=== PATIENT | male | born 1990 | race Two or more races ===

== ENCOUNTER → 2023-10-31 | Outpatient (CLI) | payer MEDICAID, SELFPAY | END | disposition home or self-care (01) | PROVIDERS: PCP Family Medicine; Referring Provider Family Medicine; Visit Provider Student in an Organized Health Care Education/Training Program | DX: S81.801A Unspecified open wound, right lower leg, initial encounter (principal); S81.802A Unspecified open wound, left lower leg, initial encounter; W17.89XA Other fall from one level to another, initial encounter; R60.0 Localized edema; E66.9 Obesity, unspecified | CPT/HCPCS: 99213; A9270; G0463 ==

== ENCOUNTER → 2024-01-21 | Outpatient (CLI) | payer MEDICAID, SELFPAY | END | disposition home or self-care (01) | PROVIDERS: PCP Family Medicine; Referring Provider Family Medicine; Visit Provider Student in an Organized Health Care Education/Training Program | DX: S81.801A Unspecified open wound, right lower leg, initial encounter (principal); W17.89XA Other fall from one level to another, initial encounter; L97.312 Non-pressure chronic ulcer of right ankle with fat layer exposed; R60.0 Localized edema; E66.9 Obesity, unspecified | CPT/HCPCS: 11042; 99213; A9270; G0463 ==

== ENCOUNTER → 2024-01-28 | Outpatient (CLI) | payer MEDICAID, SELFPAY | END | disposition home or self-care (01) | LOC: SWHD 10:46 | PROVIDERS: PCP Family Medicine; Referring Provider Family Medicine; Visit Provider Surgery | DX: S81.801A Unspecified open wound, right lower leg, initial encounter (principal); W17.89XA Other fall from one level to another, initial encounter; L97.312 Non-pressure chronic ulcer of right ankle with fat layer exposed; R60.0 Localized edema; E66.9 Obesity, unspecified | CPT/HCPCS: 99213; A9270; G0463 ==

== ENCOUNTER → 2024-02-04 | Outpatient (CLI) | payer MEDICAID, SELFPAY | END | disposition home or self-care (01) | LOC: SWHD 10:15 | PROVIDERS: PCP Family Medicine; Referring Provider Family Medicine; Visit Provider Student in an Organized Health Care Education/Training Program | DX: I96 Gangrene, not elsewhere classified (principal); S81.801A Unspecified open wound, right lower leg, initial encounter; W17.89XA Other fall from one level to another, initial encounter; L97.312 Non-pressure chronic ulcer of right ankle with fat layer exposed; R60.0 Localized edema; E66.9 Obesity, unspecified | CPT/HCPCS: 99213; A9270; G0463 ==

== ENCOUNTER → 2024-02-11 | Outpatient (CLI) | payer MEDICAID, SELFPAY | END | disposition home or self-care (01) | LOC: SWHD 09:54 | PROVIDERS: PCP Family Medicine; Referring Provider Family Medicine; Visit Provider Student in an Organized Health Care Education/Training Program | DX: S81.801A Unspecified open wound, right lower leg, initial encounter (principal); W17.89XA Other fall from one level to another, initial encounter; L97.312 Non-pressure chronic ulcer of right ankle with fat layer exposed; R60.0 Localized edema; E66.9 Obesity, unspecified | CPT/HCPCS: 99213; A9270; G0463 ==

== ENCOUNTER 2024-02-17 13:30 | Outpatient (RCR) | payer MEDICAID, SELFPAY ==
--- NOTE | 2024-02-04 15:44 | PTNOTE_ITS ---
PT OP Initial Eval Patient Information Outpatient Physical Therapy Treatment Date: 02/04/24 Visit Reasons: Fracture of right tibia Medical Diagnosis: Right Pilon Fracture; s82.871d Treatment Dx #1: Right Ankle Mobility Deficits Treatment Dx #2: Abnormal Gait Start of Care: 02/04/24 Date of Onset: 08/13/23 Smoking Status Smoking Status: Never smoker Initial Assessment Subjective: Pt is a 33 y/o male s/p right ankle pilon fracture external fixator after falling from attic 08/13/23. Pt's external fixator removed in Oct 2023. Pt still has limitation with standing, chores, self care, balance, walking, and performing recreational activities. Objective: Right Ankle AROM DF: neutral PF: 10 deg Inversion: 2 deg Eversion: 5 deg Right Ankle MMTs: grossly 2-/5 Right Knee AROM: all motions are WNL Right Knee MMTs: grossly 3+/5 Right Hip AROM: all motions are WNL Right Hip MMTs: grossly 3+/5 Gait Observation: step to with FWW Assessment: Pt demonstrate right ankle mobility deficits s/p surgery leading to difficulty with ADLs. Pt will benefit from physical therapy to increase ROM, strength, and work on ambulation Short Term and Net Developer With [employer] Goals 1) Increase right ankle AROM WFL in 12 wks to be able to walk 2) Increase right ankle MMTs grossly to 4-/5 in 12 wks to be able to perform chores 3) Decrease ankle pain to 2/10 in 12 wks to be able to stand more than 30 mins 4) Increase right hip MMTs grossly to 4-/5 in 12 wks to be able to perform recreational activities 5) Indep with HEP Treatment Plan 1) Manual Therapy 2) Therapeutic Activities 3) Therapeutic Exercises 4) Modalities (ice, heat) 5) Balance Training 6) Gait Training Frequency and Duration: 2 x wk for 12 wks Certification Dates: 02/04/24 to 05/04/24 Procedure Charges OP PT Eval Mod Complex 30 minutes: Yes
--- NOTE | 2024-02-17 13:35 | PT.ODAYNRPT ---
PT Outpatient Daily Note OP Daily Note Outpatient Physical Therapy Treatment Date: 02/17/24 Visit Reasons: Fracture of right tibia Subjective: Pt reports he continues to use CAM boot and FWW. Pt shared when he is out of boot at home with walks with FWW but NWB on R foot. Objective: Please see flow sheet for ther ex lsit Assessment: Pt instructed and educated on PWB status and encouraged to attempt in clinic but pt hesitant. Pt instructed on forward lunge exercise on step, pt tolerated well. Plan: Continue with POC. Length of Time (minutes) of Treatment: 30 Minutes Procedure Charges Therapeutic Exercise 30 minutes: Yes
== END 2024-02-18 23:59 | disposition home or self-care (01) ==
LOC: CPTX 13:30
PROVIDERS: PCP Family Medicine; Referring Provider Family Medicine; Visit Provider Family Medicine
DX: R26.2 Difficulty in walking, not elsewhere classified (principal); R26.89 Other abnormalities of gait and mobility; S82.871D Displaced pilon fracture of right tibia, subsequent encounter for closed fracture with routine healing; W17.89XD Other fall from one level to another, subsequent encounter
CPT/HCPCS: 97110; 97162

== ENCOUNTER → 2024-02-18 | Outpatient (CLI) | payer MEDICAID, SELFPAY | END | disposition home or self-care (01) | LOC: SWHD 11:05 | PROVIDERS: PCP Family Medicine; Referring Provider Family Medicine; Visit Provider Student in an Organized Health Care Education/Training Program | DX: I96 Gangrene, not elsewhere classified (principal); S81.801A Unspecified open wound, right lower leg, initial encounter; W17.89XA Other fall from one level to another, initial encounter; L97.312 Non-pressure chronic ulcer of right ankle with fat layer exposed; R60.0 Localized edema; E66.9 Obesity, unspecified | CPT/HCPCS: 99213; A9270; G0463 ==

== ENCOUNTER → 2024-02-26 | Outpatient (CLI) | payer MEDICAID, SELFPAY | END | disposition home or self-care (01) | LOC: SWHD 13:48 | PROVIDERS: PCP Family Medicine; Referring Provider Family Medicine; Visit Provider Surgery | DX: I96 Gangrene, not elsewhere classified (principal); S81.801A Unspecified open wound, right lower leg, initial encounter; W17.89XA Other fall from one level to another, initial encounter; L97.312 Non-pressure chronic ulcer of right ankle with fat layer exposed; R60.0 Localized edema; E66.9 Obesity, unspecified | CPT/HCPCS: 99213; A9270; G0463 ==

== ENCOUNTER → 2024-03-05 | Outpatient (CLI) | payer MEDICAID, SELFPAY | END | disposition home or self-care (01) | LOC: SWHD 13:39 | PROVIDERS: PCP Family Medicine; Referring Provider Family Medicine; Visit Provider Student in an Organized Health Care Education/Training Program | DX: I96 Gangrene, not elsewhere classified (principal); S81.801A Unspecified open wound, right lower leg, initial encounter; W17.89XA Other fall from one level to another, initial encounter; L97.312 Non-pressure chronic ulcer of right ankle with fat layer exposed; R60.0 Localized edema; E66.9 Obesity, unspecified | CPT/HCPCS: 99213; A9270; G0463 ==

== ENCOUNTER → 2024-03-06 | Outpatient (CLI) | payer MEDICAID, SELFPAY | END | disposition home or self-care (01) | LOC: SLDO 15:22 | PROVIDERS: PCP Student in an Organized Health Care Education/Training Program; Referring Provider Student in an Organized Health Care Education/Training Program; Visit Provider Student in an Organized Health Care Education/Training Program | DX: L97.312 Non-pressure chronic ulcer of right ankle with fat layer exposed (principal) | CPT/HCPCS: 87070; 87075; 87077; 87186; 87205 ==

== ENCOUNTER → 2024-03-12 | Outpatient (CLI) | payer MEDICAID, SELFPAY | END | disposition home or self-care (01) | LOC: SWHD 13:40 | PROVIDERS: PCP Family Medicine; Referring Provider Family Medicine; Visit Provider Student in an Organized Health Care Education/Training Program | DX: I96 Gangrene, not elsewhere classified (principal); S81.801A Unspecified open wound, right lower leg, initial encounter; W17.89XA Other fall from one level to another, initial encounter; L97.312 Non-pressure chronic ulcer of right ankle with fat layer exposed; R60.0 Localized edema; E66.9 Obesity, unspecified | CPT/HCPCS: 99213; A9270; G0463 ==

== ENCOUNTER 2024-03-18 13:00 | Outpatient (RCR) | payer MEDICAID, SELFPAY ==
--- NOTE | 2024-02-20 13:38 | PT.ODAYNRPT ---
PT Outpatient Daily Note OP Daily Note Outpatient Physical Therapy Treatment Date: 02/20/24 Visit Reasons: Fracture of RT tibia Subjective: Pt's foot feeling okay. Pt mention his wound continues to heal. Pt has not attempted walking on the right ankle yet. Objective: Please see flow chart for list of ther ex performed Assessment: progressing with exercises and started more WB exercises with good tolerance. Pt encouraged to start WB more at home to be able to transition to a better gait pattern. Plan: Continue with PT Length of Time (minutes) of Treatment: 30 Minutes Procedure Charges Therapeutic Exercise 30 minutes: Yes
--- NOTE | 2024-02-25 13:52 | PT.ODAYNRPT ---
PT Outpatient Daily Note OP Daily Note Outpatient Physical Therapy Treatment Date: 02/25/24 Visit Reasons: Fracture of RT tibia Subjective: Pt reports foot is doing better, is not using CAM boot today and ambulating with FWW NWB on R LE. Objective: Please see flow sheet for ther ex list. Assessment: Worked on GT with FWW with WBAT on R foot, pt able to complete 3 laps in parallel bars. Pt replicated gait ambulating in clinic with FWW, pt WBAT during GT. Plan: Continue with pOC. Length of Time (minutes) of Treatment: 30 Minutes Procedure Charges Therapeutic Exercise 30 minutes: Yes
--- NOTE | 2024-02-27 13:06 | PT.ODAYNRPT ---
PT Outpatient Daily Note OP Daily Note Outpatient Physical Therapy Treatment Date: 02/27/24 Visit Reasons: Fracture of RT tibia Subjective: Pt reports foot is doing ok, pt ambulating NWB on R LE with FWW. Objective: Please see flow sheet for ther ex list. Assessment: Pt instructed on GT with B UE in parallel bars, pt ambulated WBAT wtih no pain. Pt encouraged to WBAT to maximize rehab potential since pt can ambulate pain free, pt agreed. Plan: Continue with POC. Assess response to WBAT instructions. Length of Time (minutes) of Treatment: 30 Minutes Procedure Charges Therapeutic Exercise 30 minutes: Yes
--- NOTE | 2024-03-03 14:27 | PT.ODAYNRPT ---
PT Outpatient Daily Note OP Daily Note Outpatient Physical Therapy Treatment Date: 03/03/24 Visit Reasons: Fracture of RT tibia Subjective: Pt's been able to walk and start putting weight on his toes with less pressure. Objective: Please see flow chart for list of ther ex performed Assessment: worked on step to pattern in PB. frequent cues to heel toe vs toe to heel. Pt is progressing with gait and able to put more weight through right LE in stance Plan: Continue with PT Length of Time (minutes) of Treatment: 30 Minutes Procedure Charges Therapeutic Exercise 30 minutes: Yes
--- NOTE | 2024-03-06 14:24 | PT.ODAYNRPT ---
PT Outpatient Daily Note OP Daily Note Outpatient Physical Therapy Treatment Date: 03/06/24 Visit Reasons: Fracture of RT tibia Subjective: Pt's ankle is getting better. Pt is walking more with confidence at home. Objective: Please see flow chart for list of ther ex perfomed Assessment: improving with ankle mobility and able to continue to increase WB with step to gait. Plan: Continue with PT Length of Time (minutes) of Treatment: 30 Minutes Procedure Charges Therapeutic Exercise 30 minutes: Yes
--- NOTE | 2024-03-10 12:00 | PT.ODAYNRPT ---
PT Outpatient Daily Note OP Daily Note Outpatient Physical Therapy Treatment Date: 03/10/24 Visit Reasons: Fracture of RT tibia Subjective: No new complaints. Pt WBAT using FWW. Objective: Please see flow sheet for ther ex list. Assessment: Pt encouraged to WB on R LE, pt ambulating with TTWb or NWB when ambulating. Pt heavy use of hands during gait training and exercises in parallel bars. Plan: Continue with POC. Length of Time (minutes) of Treatment: 30 Minutes Procedure Charges Therapeutic Exercise 30 minutes: Yes
--- NOTE | 2024-03-12 12:53 | PT.ODAYNRPT ---
PT Outpatient Daily Note OP Daily Note Outpatient Physical Therapy Treatment Date: 03/12/24 Visit Reasons: Fracture of RT tibia Subjective: Pt feels more confidence with walking. Objective: Please see flow chart for list of ther ex performed Assessment: able to stand today without assist. Pt was unable to attempt going up or down steps today due to fear and inability to maintain SLS when advancing left LE Plan: Continue with PT Length of Time (minutes) of Treatment: 30 Minutes Procedure Charges Therapeutic Exercise 30 minutes: Yes
--- NOTE | 2024-03-16 13:34 | PT.ODAYNRPT ---
PT Outpatient Daily Note OP Daily Note Outpatient Physical Therapy Treatment Date: 03/16/24 Visit Reasons: Fracture of RT tibia Subjective: Pt reports progress with R LE. Objective: Please see flow sheet for ther ex list. Assessment: Pt ambulating with FWW, heavy use of hand and WBAT on R LE. Pt encouraged to attempt to increase WB on R LE, instructed static standing with no FEDERAL JAVA DEVELOPER pt guarded and hesitant continues to favor L side. Plan: Continue with POC. Length of Time (minutes) of Treatment: 30 Minutes Procedure Charges Therapeutic Exercise 30 minutes: Yes
--- NOTE | 2024-03-18 16:20 | PT.ODAYNRPT ---
PT Outpatient Daily Note OP Daily Note Outpatient Physical Therapy Treatment Date: 03/18/24 Visit Reasons: Fracture of RT tibia Subjective: Pt's foot is okay. Pt notice some soreness after last session Objective: Please see flow chart for list of ther ex performed Assessment: cue to correct gait to heel toe vs toe to heel. Able to correct gait with decrease stride length. Pt continues to exhibit increase WB on the right ankle with all exercises in therapy Plan: Continue with PT Length of Time (minutes) of Treatment: 30 Minutes Procedure Charges Therapeutic Exercise 30 minutes: Yes
== END 2024-03-20 23:59 | disposition home or self-care (01) ==
LOC: CPTX 13:00
PROVIDERS: PCP Family Medicine; Referring Provider Family Medicine; Visit Provider Family Medicine
DX: R26.2 Difficulty in walking, not elsewhere classified (principal); R26.89 Other abnormalities of gait and mobility; S82.871D Displaced pilon fracture of right tibia, subsequent encounter for closed fracture with routine healing; W17.89XD Other fall from one level to another, subsequent encounter
CPT/HCPCS: 97110

== ENCOUNTER → 2024-03-19 | Outpatient (CLI) | payer MEDICAID, SELFPAY | END | disposition home or self-care (01) | LOC: SWHD 13:42 | PROVIDERS: PCP Family Medicine; Referring Provider Family Medicine; Visit Provider Student in an Organized Health Care Education/Training Program | DX: S81.801A Unspecified open wound, right lower leg, initial encounter (principal); W17.89XA Other fall from one level to another, initial encounter; L97.312 Non-pressure chronic ulcer of right ankle with fat layer exposed; R60.0 Localized edema; E66.9 Obesity, unspecified | CPT/HCPCS: 99213; A9270; G0463 ==

== ENCOUNTER → 2024-03-25 | Outpatient (CLI) | payer MEDICAID, SELFPAY | END | disposition home or self-care (01) | LOC: SWHD 14:23 | PROVIDERS: PCP Family Medicine; Referring Provider Family Medicine; Visit Provider Surgery | DX: S81.801A Unspecified open wound, right lower leg, initial encounter (principal); W17.89XA Other fall from one level to another, initial encounter; L97.312 Non-pressure chronic ulcer of right ankle with fat layer exposed; R60.0 Localized edema; E66.9 Obesity, unspecified | CPT/HCPCS: 99213; A9270; G0463 ==

== ENCOUNTER → 2024-04-01 | Outpatient (CLI) | payer MEDICAID, SELFPAY | END | disposition home or self-care (01) | LOC: SWHD 14:38 | PROVIDERS: PCP Family Medicine; Referring Provider Family Medicine; Visit Provider Student in an Organized Health Care Education/Training Program | DX: T81.89XA Other complications of procedures, not elsewhere classified, initial encounter (principal); L97.312 Non-pressure chronic ulcer of right ankle with fat layer exposed; R60.0 Localized edema; E66.9 Obesity, unspecified | CPT/HCPCS: 99213; A9270; G0463 ==

== ENCOUNTER 2024-04-16 13:00 | Outpatient (RCR) | payer MEDICAID, SELFPAY ==
--- NOTE | 2024-03-24 15:07 | PT.ODAYNRPT ---
PT Outpatient Daily Note OP Daily Note Outpatient Physical Therapy Treatment Date: 03/24/24 Visit Reasons: FRACTURE RIGHT TIBIA Subjective: Pt's ankle feels okay. Pt mentioned he still has fear with walking without his walker Objective: Please see flow chart for list of ther ex performed Assessment: attempted to transition patient to [place] with left hand in PB but unable to due inability to WB on the right ankle while advancing the left LE. Pt modified back to placing bilateral palm while gait training in parallel bar to put more weight on the right ankle in stance Plan: Continue with PT Length of Time (minutes) of Treatment: 30 Minutes Procedure Charges Therapeutic Exercise 30 minutes: Yes
--- NOTE | 2024-03-26 13:34 | PT.ODAYNRPT ---
PT Outpatient Daily Note OP Daily Note Outpatient Physical Therapy Treatment Date: 03/26/24 Visit Reasons: FRACTURE RIGHT TIBIA Subjective: Pt decided to wear shoe today due to the rain and notice he feels more balance while walking. Objective: Please see flow chart for list of ther ex performed Assessment: able to transition to one hand on the PB with gait. Pt demonstrate confidence with WB and gait today Plan: Continue with PT Length of Time (minutes) of Treatment: 30 Minutes Procedure Charges Therapeutic Exercise 30 minutes: Yes
--- NOTE | 2024-03-30 14:35 | PTNOTE_ITS ---
PT Outpatient Daily Note OP Daily Note Outpatient Physical Therapy Treatment Date: 03/30/24 Visit Reasons: FRACTURE RIGHT TIBIA Subjective: Pt came in wearing tennis shoes on R foot, continues to use FWW. Objective: Please see flow sheet for ther ex list. Assessment: Pt continues with heavy use of hands during GT, decrease stance phase on R LE and poor heel strike. Pt can replicate heel toe gait in parallel bars during GT but relies heavy on HOSPITAL CHIEF FINANCIAL OFFICER. Pt denies pain with WB, once pt uses FWW pt reverts to favoring L LE and heavy use of hands. Plan: Continue working on gait. Length of Time (minutes) of Treatment: 30 Minutes Procedure Charges Therapeutic Exercise 30 minutes: Yes
--- NOTE | 2024-04-03 14:09 | PT.ODAYNRPT ---
PT Outpatient Daily Note OP Daily Note Outpatient Physical Therapy Treatment Date: 04/03/24 Visit Reasons: FRACTURE RIGHT TIBIA Subjective: Pt's doing fine no new concerns. Objective: Please see flow chart for list of ther ex performed Assessment: demonstrate regression with gait today. Pt resort to long stride with right LE leading to decrease WB in stance leading to a hopping gait with use of one UE in PB. Pt require frequent cues to take small step to improve gait ase master mechanic. Plan: Continue with PT Length of Time (minutes) of Treatment: 30 Minutes Procedure Charges Therapeutic Exercise 30 minutes: Yes
--- NOTE | 2024-04-08 12:46 | PTNOTE_ITS ---
PT Outpatient Daily Note OP Daily Note Outpatient Physical Therapy Treatment Date: 04/08/24 Visit Reasons: FRACTURE RIGHT TIBIA Subjective: Pt mentioned ankled feels stiff. Pt has been practicing walking at home. Objective: palpation: hypomobile talocrural joint. Assessment: improved ankle DF AROM post joint mob and calf stretching leading to better gait powerhouse mechanic helper in stance Plan: Continue with PT Length of Time (minutes) of Treatment: 30 Minutes Procedure Charges Therapeutic Exercise 30 minutes: Yes Manual Chief Transfer And Pumphouse Operator 15 minutes: Yes
--- NOTE | 2024-04-10 14:41 | PT.ODAYNRPT ---
PT Outpatient Daily Note OP Daily Note Outpatient Physical Therapy Treatment Date: 04/10/24 Visit Reasons: FRACTURE RIGHT TIBIA Subjective: No complaints, pt denies pain with WB on R LE. Objective: Please see flow sheet for ther ex list. Assessment: Pt continues to ambulate with poor heel strike, continues to use FWW with tip toe WB on R LE. Pt educated on foot flar during L foot swing, was able to replicate in parallel bars during GT but once pt uses FWW reverts to poor heel strike. Plan: Continue with pOC, work on normalizing gait and improving ankle mobility. Length of Time (minutes) of Treatment: 30 Minutes Procedure Charges Therapeutic Exercise 30 minutes: Yes
--- NOTE | 2024-04-14 13:23 | PT.ODAYNRPT ---
PT Outpatient Daily Note OP Daily Note Outpatient Physical Therapy Treatment Date: 04/14/24 Visit Reasons: FRACTURE RIGHT TIBIA Subjective: No new complaints. Objective: Please see flow sheet for ther ex list. Assessment: Pt continues to ambulate with FWW and tip toe gait on R foot. Pt able to perform improved heel strike on R foot and R foot flat during L LE swing phase while GT in parallel bars. Pt continues to be educated on goals and expectations on foot position during ambulation to work toward normailizing gait, pt can replicate when ambulating in parallel bars but then reverts to poor gait pattern when using FWW. Plan: Continue wtih POC. Length of Time (minutes) of Treatment: 30 Minutes Procedure Charges Therapeutic Exercise 30 minutes: Yes
--- NOTE | 2024-04-16 13:58 | PT.ODAYNRPT ---
PT Outpatient Daily Note OP Daily Note Outpatient Physical Therapy Treatment Date: 04/16/24 Visit Reasons: FRACTURE RIGHT TIBIA Subjective: Pt recently seen a bullet slugs inspector. According to bullet slugs inspector patient can start using a cane as able. Objective: Please see flow chart for list of ther ex performed Assessment: improved ankle DF AROM post PT session. Decrease ankle DF in stance is what's preventing patient from improving gait treatment plant mechanic. Pt instructed to performed ankle stretches and ROM as HEP at home. Plan: Continue with PT Length of Time (minutes) of Treatment: 30 Minutes Procedure Charges Therapeutic Exercise 30 minutes: Yes
== END 2024-04-17 23:59 | disposition home or self-care (01) ==
LOC: CPTX 13:00
PROVIDERS: PCP Family Medicine; Referring Provider Family Medicine; Visit Provider Family Medicine
DX: R26.2 Difficulty in walking, not elsewhere classified (principal); R26.89 Other abnormalities of gait and mobility; S82.871D Displaced pilon fracture of right tibia, subsequent encounter for closed fracture with routine healing; W17.89XD Other fall from one level to another, subsequent encounter
CPT/HCPCS: 97110; 97140

== ENCOUNTER → 2024-04-22 | Outpatient (CLI) | payer MEDICAID, SELFPAY | END | disposition home or self-care (01) | LOC: SWHD 11:00 | PROVIDERS: PCP Family Medicine; Referring Provider Family Medicine; Visit Provider Student in an Organized Health Care Education/Training Program | DX: T81.89XA Other complications of procedures, not elsewhere classified, initial encounter (principal); L97.312 Non-pressure chronic ulcer of right ankle with fat layer exposed; R60.0 Localized edema; E66.9 Obesity, unspecified | CPT/HCPCS: 99213; G0463 ==

== ENCOUNTER 2024-04-30 14:00 | Outpatient (RCR) | payer MEDICAID, SELFPAY ==
--- NOTE | 2024-04-21 15:07 | PT.ODAYNRPT ---
PT Outpatient Daily Note OP Daily Note Outpatient Physical Therapy Treatment Date: 04/21/24 Visit Reasons: fx r tibia Subjective: No new complaints. Objective: Please see flow sheet for ther ex list. Assessment: Pt continues to present with limited DF resulting in poor heel strike during ambulation. Plan: continue with POC. Length of Time (minutes) of Treatment: 30 Minutes Procedure Charges Therapeutic Exercise 30 minutes: Yes
--- NOTE | 2024-04-23 13:35 | PT.ODAYNRPT ---
PT Outpatient Daily Note OP Daily Note Outpatient Physical Therapy Treatment Date: 04/23/24 Visit Reasons: fx r tibia Subjective: No new complaints. Objective: Please see flow sheet for ther ex list. Assessment: Continued high focus on normalizing gait. Pt able to replicate gait with increase stance phase on R LE using FWW but required frequent reminder. Plan: Continue with POC. Length of Time (minutes) of Treatment: 30 Minutes Procedure Charges Therapeutic Exercise 30 minutes: Yes
--- NOTE | 2024-04-28 16:04 | PT.ODS1RPT ---
PT OP Progress/Discharge Note Date of Service: 04/28/24 Progress Note/DC Note Progress Note/Discharge Note: Progress Note Patient Information Visit Reasons: fx r tibia Medical Diagnosis: [id number] Treatment Dx #1: Right Ankle Mobility Deficits Service Continue Service or Discharge: Continue Service Certification Date Certification Dates: 04/28/24 to 07/29/24 Status Subjective: Pt's ankle is better and now walking more with a cane. Pt's ankle still stiff leading to difficulty with certain tasks or prolonged walking. Pt has been able to stand, perform light chores, and navigate around the house with less limitation. Objective: Right Ankle AROM DF: 5 deg PF: 20 deg Inversion: 13 deg Eversion: 9 deg Right Ankle MMTs: grossly 3/5 Right Knee MMTs: grossly 4-/5 Right Hip MMTs: grossly 3+/5 Gait Observation: step through with cane Assessment: Pt slowly progressing with ankle AROM and strength allowing him to ambulate, stand, and perform chores with less limitation. Pt has not met set goals and will continue to benefit from physical therapy to increase ROM, strength, and work on ambulation. Plan: Continue with PT/POC and add 12 sessions (2 x wk for 6 wks) Procedure Charges Therapeutic Exercise 30 minutes: Yes
--- NOTE | 2024-04-30 15:05 | PT.ODAYNRPT ---
PT Outpatient Daily Note OP Daily Note Outpatient Physical Therapy Treatment Date: 04/30/24 Visit Reasons: fx r tibia Subjective: Pt ambulating with SPC. Objective: Please see flow sheet for ther ex list. Assessment: Pt demonstrates poor foot clearance and decrease stance phase on R LE. Worked on increasing step height to decrease fall risk, pt drags L foot at times to initiate step. Plan: Continue with POC. Length of Time (minutes) of Treatment: 30 Minutes Procedure Charges Therapeutic Exercise 30 minutes: Yes
--- NOTE | 2024-05-29 11:25 | PT.ODS1RPT ---
PT OP Progress/Discharge Note Date of Service: 05/29/24 Progress Note/DC Note Progress Note/Discharge Note: DC Note Patient Information Visit Reasons: fx r tibia Service Discharge Date: 05/29/24 Status Assessment: Pt has been seen for 23 visits (eval + 22 visits). Pt last treated on 04/30/24. Pt will be d/c from care due to POC 05/04/24. Pt did not meet set goals in therapy; thank you for your referrals
== END 2024-05-18 23:59 | disposition home or self-care (01) ==
LOC: CPTX 14:00
PROVIDERS: PCP Family Medicine; Referring Provider Family Medicine; Visit Provider Family Medicine
DX: R26.2 Difficulty in walking, not elsewhere classified (principal); R26.89 Other abnormalities of gait and mobility; S82.871D Displaced pilon fracture of right tibia, subsequent encounter for closed fracture with routine healing; W17.89XD Other fall from one level to another, subsequent encounter
CPT/HCPCS: 97110

== ENCOUNTER → 2024-05-20 | Outpatient (CLI) | payer MEDICAID, SELFPAY | END | disposition home or self-care (01) | LOC: SWHD 10:31 | PROVIDERS: PCP Family Medicine; Referring Provider Family Medicine; Visit Provider Student in an Organized Health Care Education/Training Program | DX: T81.89XA Other complications of procedures, not elsewhere classified, initial encounter (principal); L97.312 Non-pressure chronic ulcer of right ankle with fat layer exposed; R60.0 Localized edema; E66.9 Obesity, unspecified | CPT/HCPCS: 99212; G0463 ==

== ENCOUNTER 2024-09-15 13:00 | Outpatient (RCR) | payer MEDICAID, SELFPAY ==
--- NOTE | 2024-09-02 13:38 | PT.OIERPT ---
PT OP Initial Eval Patient Information Outpatient Physical Therapy Treatment Date: 09/02/24 Visit Reasons: FX of RT tibia Medical Diagnosis: R tibia FX Treatment Dx #1: R ankle pain Start of Care: 09/02/24 Date of Onset: July 2023 Smoking Status Smoking Status: Never smoker Initial Assessment Subjective: Pt is 33 y/o male s/p right ankle pilon fracture external fixator after falling from attic 08/13/23. Pt's external fixator removed in Oct 2023 and he has progressed from the walker to a cane and presents ambulating today without assistive device. He can walk about .5 to 1 block with difficulty due to anterior R ankle pain. Standing and walking tolerances are limited. PMH: none reported Imaging: none Pt goal: to walk around the park and store Objective: R ankle AROM: DF: 3 deg PF: 45 deg Inversion: 3 deg TTP: none TTP of incision scars Gait: R foot outtoeing, decreased knee flexion Heel raise: 20% of full height on R Assessment: Pt presentation consistent with referring Dx with decreased WB tolerance, ROM and pain of R ankle. Pt requires skilled therapy to meet goals and has fair rehab potential. Eval followed by HEP. Short Term and Correction Goals 1. Ind with HEP 2. Improved DF ROM to at least 6 deg 3. Heel raise to 50% of full height x5 4. Ambulate with straight foot and equal WB x community distances Treatment Plan ? 1. Manual therapy ? 2. Therex ? 3. Modalities as indicated, moist heat, ice, estim Frequency and Duration: 1-2x a week for 12 visits Certification Dates: 09/02/24 to 12/01/24 Procedure Charges OP PT Eval Mod Complex 30 minutes: Yes
--- NOTE | 2024-09-08 16:55 | PT.ODAYNRPT ---
PT Outpatient Daily Note OP Daily Note Outpatient Physical Therapy Treatment Date: 09/08/24 Visit Reasons: FX of RT tibia Subjective: Same as time of evaluation Objective: See F/S for therex Assessment: Pt can partially correct intoeing of R during gait but reverts back in a few feet. Plan: Continue per POC Length of Time (minutes) of Treatment: 30 Minutes Procedure Charges Therapeutic Exercise 30 minutes: Yes
--- NOTE | 2024-09-15 14:05 | PT.ODAYNRPT ---
PT Outpatient Daily Note OP Daily Note Outpatient Physical Therapy Treatment Date: 09/15/24 Visit Reasons: FX of RT tibia Subjective: No new complaints. Objective: Please see flow sheet for ther ex list. Assessment: Pt continues to ambulate with R LE out toeing gait, corrects post cues but then reverts back. Plan: Continue with poC. Length of Time (minutes) of Treatment: 30 Minutes Procedure Charges Therapeutic Exercise 30 minutes: Yes
== END 2024-09-17 23:59 | disposition home or self-care (01) ==
LOC: CPTX 13:00
PROVIDERS: PCP Anesthesiology; Referring Provider Anesthesiology; Visit Provider Anesthesiology
DX: M25.571 Pain in right ankle and joints of right foot (principal); R26.2 Difficulty in walking, not elsewhere classified; S82.871D Displaced pilon fracture of right tibia, subsequent encounter for closed fracture with routine healing; W13.2XXD Fall from, out of or through roof, subsequent encounter
CPT/HCPCS: 97110; 97162

== ENCOUNTER 2024-10-14 13:00 | Outpatient (RCR) | payer MEDICAID, SELFPAY ==
--- NOTE | 2024-09-22 17:12 | PT.ODAYNRPT ---
PT Outpatient Daily Note OP Daily Note Outpatient Physical Therapy Treatment Date: 09/22/24 Visit Reasons: FX of RT tibia Subjective: Same as last time Objective: See F/S for therex Assessment: Pt can partially correct intoeing of R during gait but reverts back in a few feet. He doesn't trust the foot with WB Plan: Continue per POC Length of Time (minutes) of Treatment: 30 Minutes Procedure Charges Therapeutic Exercise 30 minutes: Yes
--- NOTE | 2024-09-29 15:08 | PT.ODAYNRPT ---
PT Outpatient Daily Note OP Daily Note Outpatient Physical Therapy Treatment Date: 09/29/24 Visit Reasons: FX of RT tibia Subjective: No new complaints or concerns. Objective: Please see flow sheet for ther ex list. Assessment: Pt continues to ambulate with antalgic gait and out toe gait, can correct post verbal cues and demonstration but then reverts back to antalgic gait. Plan: Continue with pOC. Length of Time (minutes) of Treatment: 30 Minutes Procedure Charges Therapeutic Exercise 30 minutes: Yes
--- NOTE | 2024-10-06 14:05 | PT.ODAYNRPT ---
PT Outpatient Daily Note OP Daily Note Outpatient Physical Therapy Treatment Date: 10/06/24 Visit Reasons: FX of RT tibia Subjective: Pt reports progress. Objective: Please see flow sheet for ther ex list. Assessment: Pt instructed on calf stretches to work toward improving ankle mobility and heel strike. Plan: Continue with pOC. Length of Time (minutes) of Treatment: 30 Minutes Procedure Charges Therapeutic Exercise 30 minutes: Yes
--- NOTE | 2024-10-14 14:05 | PT.ODAYNRPT ---
PT Outpatient Daily Note OP Daily Note Outpatient Physical Therapy Treatment Date: 10/14/24 Visit Reasons: FX of RT tibia Subjective: Pt reports progress with R LE. Objective: Please see flow sheet for ther ex list. Assessment: Pt demonstrates increase stance phase during ambulation but out toeing gait still present. Plan: Continue working on normalizing gait and LE functional strength. Length of Time (minutes) of Treatment: 30 Minutes Procedure Charges Therapeutic Exercise 30 minutes: Yes
== END 2024-10-18 23:59 | disposition home or self-care (01) ==
LOC: CPTX 13:00
PROVIDERS: PCP Anesthesiology; Referring Provider Anesthesiology; Visit Provider Anesthesiology
DX: M25.571 Pain in right ankle and joints of right foot (principal); R26.2 Difficulty in walking, not elsewhere classified; S82.891D Other fracture of right lower leg, subsequent encounter for closed fracture with routine healing; W17.89XD Other fall from one level to another, subsequent encounter
CPT/HCPCS: 97110

== ENCOUNTER 2024-11-11 13:00 | Outpatient (RCR) | payer MEDICAID, SELFPAY ==
--- NOTE | 2024-10-21 13:42 | PTNOTE_ITS ---
PT Outpatient Daily Note OP Daily Note Outpatient Physical Therapy Treatment Date: 10/21/24 Visit Reasons: FX RIGHT TIBIA Subjective: No new complaints. Objective: please see flow sheet for ther ex list. Assessment: Pt demonstrates poor stability and strength when ascending steps with R LE, moderate sway present requiring ADVERTISING OPERATIONS COORDINATOR to perform exercise. Plan: Continue with poC. Length of Time (minutes) of Treatment: 30 Minutes Procedure Charges Therapeutic Exercise 30 minutes: Yes
--- NOTE | 2024-10-28 14:09 | PT.ODAYNRPT ---
PT Outpatient Daily Note OP Daily Note Outpatient Physical Therapy Treatment Date: 10/28/24 Visit Reasons: FX RIGHT TIBIA Subjective: Low pain of ankle Objective: See F/S for therex Assessment: He can ambulate with improved stance time and R ankle DF to allow for more symmetrical pattern with cues. He had difficulty activating anterior tibialis mm but improved with cues to dorsiflex the R ankle. Plan: Continue per POC Length of Time (minutes) of Treatment: 30 Minutes Procedure Charges Therapeutic Exercise 30 minutes: Yes
--- NOTE | 2024-11-04 14:22 | PTNOTE_ITS ---
PT Outpatient Daily Note OP Daily Note Outpatient Physical Therapy Treatment Date: 11/04/24 Visit Reasons: FX RIGHT TIBIA Subjective: Pt notices leg is getting stronger and is walking better. Objective: Please see flow sheet for ther ex list. Assessment: Pt demonstrates improved gait and performed forward step up exercise with no ROLLING MACHINE TENDER indicating progress. Plan: Continue with poC. Length of Time (minutes) of Treatment: 30 Minutes Procedure Charges Therapeutic Exercise 30 minutes: Yes
--- NOTE | 2024-11-11 13:57 | PT.ODAYNRPT ---
PT Outpatient Daily Note OP Daily Note Outpatient Physical Therapy Treatment Date: 11/11/24 Visit Reasons: FX RIGHT TIBIA Subjective: Pt reports progress with R LE. Objective: Please see flow sheet for ther ex list. Assessment: Pt demonstrates poor control with descending steps due to poor ankle DF. Plan: Continue with pOC. Length of Time (minutes) of Treatment: 30 Minutes Procedure Charges Therapeutic Exercise 30 minutes: Yes
--- NOTE | 2024-11-19 08:44 | PT.ODS1RPT ---
PT OP Progress/Discharge Note Date of Service: 11/19/24 Progress Note/DC Note Progress Note/Discharge Note: DC Note Patient Information Visit Reasons: FX RIGHT TIBIA Service Continue Service or Discharge: Discharge Discharge Date: 11/19/24 Status Subjective: Pt reports insurance change Objective: Pt was not treated and no charges today Assessment: Pt attended the evaluation and 11/29 Rx sessions and then changed insurance so we need to D/C this chart and start again with the new insurance if provider wants him to Plan: D/C.
== END 2024-11-17 23:59 | disposition home or self-care (01) ==
LOC: CPTX 13:00
PROVIDERS: PCP Anesthesiology; Referring Provider Anesthesiology; Visit Provider Anesthesiology
DX: M25.571 Pain in right ankle and joints of right foot (principal); R26.2 Difficulty in walking, not elsewhere classified; S82.891D Other fracture of right lower leg, subsequent encounter for closed fracture with routine healing; W17.89XD Other fall from one level to another, subsequent encounter
CPT/HCPCS: 97110